=== PATIENT | male | born 1985 | race Two or more races ===

== ENCOUNTER 2020-10-18 23:23 | Emergency (ER) | payer OTHER ==
[~2020-10-18] VITALS: Ht 177.8 cm; Wt 70.3 kg
[2020-10-19] MEDS ORDERED: KETO10TA2 PO (02:26)
== END 2020-10-19 02:32 ==
LOC: ER 23:23
DX: S20.211A Contusion of right front wall of thorax, initial encounter (principal); W21.05XA Struck by basketball, initial encounter; Y93.89 Activity, other specified; Y92.89 Other specified places as the place of occurrence of the external cause; Y99.8 Other external cause status